=== PATIENT | male | born 1990 | race Caucasian/White ===

== ENCOUNTER 2023-01-19 09:20 | Emergency (ER) | payer BC ==
[~2023-01-19] VITALS: Ht 177.8 cm; Wt 106.8 kg
[2023-01-19] MEDS ORDERED: AMOXICILLIN 8751 TAB PO (10:38)
[2023-01-19 11:05] VITALS: BP 148/98; PULSE 72
== END 2023-01-19 10:56 | disposition home or self-care (01) ==
LOC: COL.ER 09:20
DX: S01.511A Laceration without foreign body of lip, initial encounter (principal); W55.22XA Struck by cow, initial encounter